=== PATIENT | female | born 1980 | race Caucasian/White ===

== ENCOUNTER 2016-11-08 22:44 | Emergency (ER) | payer OTHER ==
[~2016-11-08 22:44] MED LIST: BACTRIM DS TABL1 TA1 PO; GABAPENTIN600 MG PO; LORTAB 10/500 T1 TAB PO; NO MEDICATIONS; OMEPRAZOLE20 M1 PO; PERCOCET 5-3251 TAB PO; VOLTAREN75 MG PO
== END 2016-11-09 02:27 | disposition home or self-care (01) ==
LOC: CED 22:44
DX: T40.1X1A Poisoning by heroin, accidental (unintentional), initial encounter (principal); Z79.899 Other long term (current) drug therapy
CPT/HCPCS: 99283

== ENCOUNTER 2016-12-17 12:43 | Emergency (ER) | payer OTHER ==
--- NOTE | ~2016-12-17 | CR72 ---
[facility] A Service of [facility] & [facility] RADIOLOGY TEXT RESULTS PATIENT: MILE MOREL LOCATION: [facility] : 84 UNIT #: [id number] AGE: [address]: Andi Pagan MD SEX: F ORDER DR: [id number] [facility] [address] [place], [place] [address] [id number] MR#: [id number] Acc #: [id number] NAME: MILE MOREL : 1980 SEX: F STUDY DATE/TIME: 12/17/2016 14:17 UNIT: [facility] ROOM: STUDY DESCRIPTION: CR Chest Single View Portable Attending Physician: Sergio Pagan M.D. Ordering Physician: [facility] Primary Care Physician: Kenna Dial M.D. MEDICAL IMAGING REPORT This report is preliminary unless electronic signature is present EXAM Portable chest INDICATIONS Shortness breath today. COMPARISON 10/11/2015 FINDINGS No acute airspace consolidation. Heart size stable. Visualized osseous structures are unremarkable. IMPRESSION No active disease. Dictated by... Niall Snow M.D. THIS IS AN ELECTRONICALLY VERIFIED REPORT Niall Snow M.D. at 12/17/2016 5:06 PM Case TD: 12/17/2016 16:16 JOB #: [id number] MEDICAL IMAGING REPORT Page 1 of 1 COPY
--- NOTE | ~2016-12-17 | EKG ---
PATIENT: MILE MOREL UNIT #: [id number] Ventricular Rate: 83 BPM Atrial Rate: 83 BPM P-R Interval: 162 ms QRS Duration: 80 ms Q-T Interval: 366 ms QTC Calculation(Bezet): 430 ms P [place]: 57 degrees Calculated R [place]: 15 degrees Calculated T [place]: 15 degrees Diagnosis Line: Normal sinus rhythm Diagnosis Line: Normal ECG Diagnosis Line: When compared with ECG of 04-SEP-2014 09:58, Diagnosis Line: No significant change was found Diagnosis Line: Confirmed by LO CASH MD ([id number]) on Diagnosis Line: 12/18/2016 9:03:47 AM INTERPRETING MD: SHAILESH THAKKAR
[2016-12-17 13:26] LABS: BASOPHIL% 0.7 % (0-2.5); EOSINOPHIL# 0.3 X10e3 (0-0.7); EOSINOPHIL% 4.7 % (0.0-7.0); HEMATOCRIT 37.2 % (35.0-45.0); HEMOGLOBIN 12.1 gm/dL (12.0-16.0); LYMPHOCYTE# 2.1 X10e3 (1.0-3.5); MEAN CELL VOLUME 85.3 FL (83-96); MEAN CORPUSCULAR HEMOGLOBIN 27.8 PG (28-34); MEAN CORPUSCULAR HGB CONC 32.6 g/dL (30-36); MONOCYTE# 0.8 X10e3 (0-1.0); NEUTROPHIL# 3.6 X10e3 (1.5-7.1); NEUTROPHIL% 52.6 % (40-75); PLATELET COUNT 297 X10e3 (140-420); RED BLOOD COUNT 4.36 X10e (3.90-5.30); RED CELL DISTRIBUTION WIDTH 13.8 % (11.0-15.5); WHITE BLOOD COUNT 6.9 X10e3 (4.0-10.5)
[2016-12-17 13:33] LABS: DIFF IND NO
[2016-12-17 13:37] LABS: POC - CKMB 1.8 ng/mL (0.0-7.9); POC - TROPONIN <0.05 ng/mL (<=0.05)
[2016-12-17 14:01] LABS: ALBUMIN SERUM 3.5 g/dL (3.5-5.0); BILIRUBIN, DIRECT 0.1 mg/dL (0.0-0.2); BILIRUBIN,INDIRECT 0.4 mg/dL (0.0-0.9); BILIRUBIN,TOTAL 0.5 mg/dL (0.2-2.0); BUN/CREATININE RATIO 17.5; CALCIUM SERUM 8.6 mg/dL (8.4-10.2); CREATININE SERUM 0.8 mg/dL (0.6-1.4); GLOM FILT RATE Estimated 96.3 mL/min (>60); POTASSIUM 4.2 mmol/L (3.5-5.1); PROTEIN TOTAL SERUM 7.3 g/dL (6.0-8.3)
[2016-12-17 14:51] LABS: URINE SOURCE CLEAN CATCH
[2016-12-17 15:09] LABS: URINE APPEARANCE CLEAR; URINE BILIRUBIN NEG (NEG); URINE BLOOD NEG (NEG); URINE COLOR YELLOW; URINE GLUCOSE NEG (NEG); URINE KETONE NEG (NEG); URINE LEUKOCYTE ESTERASE TRACE (NEG); URINE NITRATE NEG (NEG); URINE PROTEIN NEG (NEG); URINE SPECIFIC GRAVITY 1.017 (1.003-1.035); URINE UROBILINOGEN 0.2 MG/DL (NEG)
[2016-12-17 15:17] LABS: CULTURE INDICATED? NO
== END 2016-12-17 17:45 | disposition short-term general hospital (02) ==
LOC: CED 12:43
PROVIDERS: Emergency Medicine
DX: T19.2XXA Foreign body in vulva and vagina, initial encounter (principal); C20 Malignant neoplasm of rectum; Z90.49 Acquired absence of other specified parts of digestive tract; X58.XXXA Exposure to other specified factors, initial encounter
CPT/HCPCS: 36415; 71010; 80048; 80076; 81003; 82553; 83880; 84484; 84703; 85025; 93005; 99285